=== PATIENT | male | born 1990 | race Caucasian/White ===

== ENCOUNTER 2017-12-09 01:58 | Emergency (ER) | payer BC ==
[~2017-12-09] VITALS: Ht 182.9 cm; Wt 84.5 kg
[2017-12-09 02:02] VITALS: TEMP 96.5
[2017-12-09 03:05] VITALS: BP 119/85; PULSE 87
== END 2017-12-09 03:05 | disposition home or self-care (01) ==
LOC: COL.ER 01:58
DX: S01.01XA Laceration without foreign body of scalp, initial encounter (principal); Z23 Encounter for immunization; F17.200 Nicotine dependence, unspecified, uncomplicated; W01.198A Fall on same level from slipping, tripping and stumbling with subsequent striking against other object, initial encounter; Y92.511 Restaurant or cafe as the place of occurrence of the external cause